=== PATIENT | female | born 1945 | race Caucasian/White ===

== ENCOUNTER 2018-11-08 10:27 | Day surgery (SDC) | payer MEDICARE, BC ==
[~2018-11-08 10:27] MED LIST: Lactated Ringers 1,000 ML IV SCH
--- NOTE | 2018-11-08 12:02 | PCM.PREANE ---
Preanesthetic Assessment - Anesthesia/Transfusion/Family Hx Anesthesia History: Prior Anesthesia Without Reaction Family History of Anesthesia Reaction: No Transfusion History: No Prior Transfusion(s) - Review of Systems General: No Symptoms Pulmonary: No Symptoms Cardiovascular: No Symptoms Gastrointestinal: No Symptoms Neurological: No Symptoms Other: Reports: None - Physical Assessment NPO Status Date: 11/07/18 O2 Sat by Pulse Oximetry: 99 Respiratory Rate: 16 Vital Signs: Last Vital Signs Temp 97.7 F 11/08/18 11:42 Pulse 63 11/08/18 11:42 Resp 16 11/08/18 11:42 BP 178/86 H 11/08/18 11:42 Pulse Ox 99 11/08/18 11:42 Height: 5 ft 8 in Weight: 73.482 kg ASA Class: 2 Mental Status: Alert & Oriented x3 Airway Class: Mallampati = 2 Dentition: Reports: Dentures (upper) ROM/Head Extension: Full Lungs: Clear to Auscultation, Normal Respiratory Effort Cardiovascular: Regular Rate, Regular Rhythm - Allergies Allergies/Adverse Reactions: Allergies Allergy/AdvReac Type Severity Reaction Status Date / Time No Known Allergies Allergy Verified 11/04/18 07:55 - Blood Blood Available: No - Anesthesia Plan Pre-Op Medication Ordered: None - Acknowledgements Anesthesia Type Planned: General Anesthesia Pt an Appropriate Candidate for the Planned Anesthesia: Yes Alternatives and Risks of Anesthesia Discussed w Pt/Guardian: Yes Pt/Guardian Understands and Agrees with Anesthesia Plan: Yes Additional Comments: PMH: alcohol use disorder- in remission, htn, Hx of DVT- off xarelto x 5 days, hld, s/p 20% BSA burn, smoker, anx/dep PLAN: mac/tiva PreAnesthesia Questionnaire HEENT History: Reports: Other (See Below) Other HEENT History: wears glasses, has top and bottom dentures Cardiovascular History: Reports: Blood Clots/VTE/DVT, Hypertension Other Cardiovascular History: hx DVT which started in her leg and went to her lungs approx 10 years ago Respiratory History: Reports: PE Gastrointestinal History: Reports: None Genitourinary History: Reports: None [employer] History: Reports: Musculoskeletal History: Reports: Back Pain, Chronic Other Musculoskeletal History: currently c/o rt leg pain Neurological History: Reports: None Psychiatric History: Reports: Anxiety, Depression Endocrine/Metabolic History: Reports: None Hematologic History: Reports: Anticoagulation Therapy Immunologic History: Reports: None Oncologic (Cancer) History: Reports: None Dermatologic History: Reports: Other (See Below) Other Dermatologic History: hx medeiros to hands, feet, neck and chest - Past Surgical History Head Surgeries/Procedures: Reports: None HEENT Surgical History: Reports: None Cardiovascular Surgical History: Reports: Other (See Below) Other Cardiovascular Surgeries/Procedures: inferior venacava filter placement Respiratory Surgical History: Reports: None GI Surgical History: Reports: Colonoscopy Female Surgical History: Reports: None Endocrine Surgical History: Reports: None Neurological Surgical History: Reports: None Musculoskeletal Surgical History: Reports: None Oncologic Surgical History: Reports: None - SUBSTANCE USE Smoking Status *Q: Light Tobacco Smoker Tobacco Use Within Last Twelve Months: Cigarettes Recreational Drug Use History: No - HOME MEDS Home Medications: Home Meds FLUoxetine HCl [Prozac] 3 tab PO DAILY 11/04/18 [History] Lisinopril 20 mg PO DAILY 11/04/18 [History] Rivaroxaban [Xarelto] 20 mg PO DAILY 11/04/18 [History] - CURRENT (IN HOUSE) MEDS Current Meds: Current Medications Lactated Ringer's (Ringers, Lactated) 1,000 mls @ 125 mls/hr IV ASD[facility]ED [facility] Last Admin: 11/08/18 11:37 Dose: 125 mls/hr
[2018-11-08] MEDS ORDERED: Ondansetron 4 MG/2 ML SDV ONE (13:57)
[2018-11-08] MEDS ORDERED: Propofol 200 MG/20 ML SDV ONE (13:57)
[2018-11-08] MEDS ORDERED: Midazolam 1 MG/ML 2 ML SDV ONE (13:58)
[2018-11-08] MEDS ORDERED: fentaNYL 100 MCG/2 ML SDV ONE (13:58)
[2018-11-08] MEDS ORDERED: Lactated Ringers 1,000 ML IV SCH (15:00)
--- NOTE | 2018-11-08 15:02 | PCM.OPNOTE ---
- General Post-Op/Procedure Note Date of Surgery/Procedure: 11/08/18 Operative Procedure(s): Colonoscopy Pre Op Diagnosis: Desire for colorectal cancer screening Post-Op Diagnosis: No evidence of neoplasia Anesthesia Technique: MAC (ASA II) Primary Surgeon: Danny Hidalgo Condition: Good Free Text/Narrative:: DICTATION [id number] CPT CODE 96920
--- NOTE | 2018-11-08 15:32 | PCM48HPAN ---
Post Anesthesia Note - EVALUATION WITHIN 48HRS OF ANESTHETIC Vital Signs in Normal Range: Yes Patient Participated in Evaluation: Yes Respiratory Function Stable: Yes Airway Patent: Yes Cardiovascular Function Stable: Yes Hydration Status Stable: Yes Pain Control Satisfactory: Yes Nausea and Vomiting Control Satisfactory: Yes Mental Status Recovered: Yes Resp Rate: 12
--- NOTE | 2018-11-08 15:32 | PCM.POSTAN ---
POST ANESTHESIA ASSESSMENT - MENTAL STATUS Mental Status: Alert, Oriented - RESPIRATORY Respiratory Status: Respiratory Rate WNL, Airway Patent, O2 Saturation Stable - CARDIOVASCULAR CV Status: Pulse Rate WNL, Blood Pressure Stable - GASTROINTESTINAL GI Status: No Symptoms - POST OP HYDRATION Hydration Status: Adequate & Stable
--- NOTE | 2018-11-08 22:51 | OR ---
SURGEON: Danny Hidalgo M.D. DATE OF PROCEDURE: 11/08/2018 PROCEDURE PERFORMED: Colonoscopy. PRIMARY SURGEON: Danny Hidalgo M.D. ANESTHESIA: MAC. ASA CLASSIFICATION: 2. PREOPERATIVE DIAGNOSIS: Desire for colorectal cancer screening. POSTOPERATIVE DIAGNOSIS: No evidence of neoplasia. DESCRIPTION OF PROCEDURE: The patient was taken to the endoscopy room and positioned on the endoscopy table in the left lateral decubitus position. Time-out was called for appropriate identification of the patient and procedure. Monitored anesthesia care was provided. The colonoscope was inserted into the rectum and advanced with significant difficulty to the cecum. The patient does have a very tortuous colon. The prep was also poor making visualization difficult. There was a large amount of mucusy stool present that could be suctioned up; however, the prep as I said was poor. Once the colonoscope was advanced to the cecum, it was retroflexed to visualize the ascending colon from below, then straightened and slowly withdrawn. The cecum, ascending colon, hepatic flexure, transverse colon, splenic flexure, descending colon, sigmoid colon, rectum showed no obvious tumors, polyps, or diverticula. No angiodysplastic changes were noted. There was no evidence of stricture formation or inflammatory bowel disease. Once the colonoscope was withdrawn to the rectum, it was retroflexed to visualize the anal orifice from above. Again, no tumors or polyps were seen and there were no acute hemorrhoidal changes. The colonoscope was then straightened, the rectum aspirated, and the colonoscope removed. The patient tolerated the procedure well and was taken to recovery room in stable condition. LORY / CHINO /[id number]
== END 2018-11-08 15:44 | disposition home or self-care (01) ==
LOC: MW.SDS 10:27
PROVIDERS: ATTEND Surgery
DX: K92.1 Melena (principal); R10.9 Unspecified abdominal pain; K63.89 Other specified diseases of intestine; I10 Essential (primary) hypertension; E78.5 Hyperlipidemia, unspecified; F17.210 Nicotine dependence, cigarettes, uncomplicated; F32.9 Major depressive disorder, single episode, unspecified; F41.9 Anxiety disorder, unspecified; Z86.72 Personal history of thrombophlebitis; Z86.711 Personal history of pulmonary embolism; Z79.01 Long term (current) use of anticoagulants; Z79.899 Other long term (current) drug therapy
CPT/HCPCS: 45378; J2250; J2405; J2704; J3010; J7120